=== PATIENT | male | born 1960 | race Caucasian/White ===

== ENCOUNTER 2023-04-26 04:43 | Observation (INO) | payer OTHER, SELFPAY ==
[2023-04-26] VITALS (10 sets, daily range): BP systolic 115–149; BP diastolic 68–95; BMI 25.6
[2023-04-26] MEDS: NSS 1000 IV ×3 (00:56→14:46)
[2023-04-26] MEDS: TORADOL 15 MG IV (00:57)
[2023-04-26] MEDS: ZOFRAN 4 MG IV (00:57)
[2023-04-26 01:29] LABS: % Basophils 1.1 % (0-2); % Immature Granulocytes 0.9 % (0-0.5); % Lymphocytes 28.7 % (20.5-51.1); % Monocytes 9.9 % (1.7-9.3); % Neutrophils 56.4 % (42.2-75.2); Absolute Basophils 0.1 10^3/uL (0-0.2); Absolute Eosinophils 0.3 10^3/uL (0-0.7); Absolute Immature Granulocytes 0.1 10^3/uL (0-0.05); Absolute Lymphocytes 2.6 10^3/uL (1.2-3.4); Absolute Monocytes 0.9 10^3/uL (0.1-0.6); Absolute Neutrophils 5.1 10^3/uL (1.4-6.5); Hematocrit 42.5 % (39.0-52.0); Hemoglobin 14.5 g/dL (13.0-18.0); Mean Corp Hgb Conc. 34.1 g/dL (33.0-37.0); Mean Corpuscular Hgb 29.4 pg (27.0-31.0); Mean Platelet Volume 10.4 fL (7.4-10.4); Nucleated Red Blood Cells % 0 % (-); Platelet Count 268 10^3/uL (130-400); Red Blood Cell Count 4.94 10^6/uL (4.70-6.10); Red Cell Dist. Width 12.9 % (11.5-14.5); White Blood Cell Count 9.1 10^3/uL (4.8-10.8)
[2023-04-26] MEDS: DILAUDID 0.5 MG IV ×7 (01:45→23:01)
[2023-04-26 01:46] LABS: ALT (SGPT) 24 U/L (0-50); AST (SGOT) 25 U/L (17-59); Albumin 4.1 g/dl (3.5-5.0); Alkaline Phosphatase 101 U/L (38-126); Blood Urea Nitrogen 23 mg/dl (9-20); Calcium 9.2 mg/dl (8.4-10.2); Carbon Dioxide 27 mmol/L (22-30); Chloride 104 mmol/L (98-107); Estimated Creatinine Clearance 54 ml/min; Glucose 143 mg/dl (70-99); Potassium 3.7 mmol/L (3.5-5.1); Sodium 141 mmol/L (135-145); Total Bilirubin 0.3 mg/dl (0.2-1.3); Total Protein 6.7 g/dl (6.3-8.2); eGFR > 60.00
[2023-04-26 01:58] LABS: Urine Albumin Negative (Neg - Trace); Urine Bilirubin Negative (Negative); Urine Character Slightly Cloudy (Clear); Urine Color Yellow; Urine Glucose Negative (Negative); Urine Ketone Trace (Negative); Urine Leukocyte Trace (Negative); Urine Nitrite Negative (Negative); Urine Occult Blood 4+ (Negative); Urine Specific Gravity 1.025 (<1.030); Urine Urobilinogen Negative (Neg - 1+)
[2023-04-26 02:11] LABS: Urine Bacteria Moderate (Negative); Urine Red Blood Cell >100 /HPF (0-2); Urine Squamous Cell 0-2 /LPF (Few); Urine Uric Acid Crystals Seen
--- NOTE | 2023-04-26 02:32 | ED.GENMED ---
History of Present Illness
General
Chief Complaint: Flank Pain
Source: patient
Exam Limitations: none
Time Seen by Provider: 04/26/23 00:48
Travel History
Have you had any contact with someone who has COVID-19?: No
Do you have any symptoms of coronavirus? Fever > 100 degrees, chills, cough, shortness of breath, sore throat, loss of taste or smell, muscle aches, or headache?: No
History of Present Illness
History of Present Illness:
Sudden onset left flank pain hours before ER arrival. Some nausea. No fever or chills. No history of similar pain. Pain is severe in nature
Past History
Past History
ED Past Medical History: None
ED Past Surgical History: Orthopedic
Social History
Tobacco: Non-smoker
Personal:
Living: with family
Family History
Family History: Unable to obtain
Review of Systems
Review of Systems
All Other Systems: Not applicable
Constitutional: Denies fever
: Denies dysuria or frequency
Phy Exam
Physical Exam
Physical Exam:
GENERAL: Alert and oriented very uncomfortable appearing but nontoxic
EYE: Orbits normal.
NECK: Supple
CARDIAC: Regular rate and rhythm without any obvious murmurs.
LUNGS: Clear breath sounds,normal
ABDOMEN: Soft, without focal tenderness or distention no CVA tenderness
NEUROLOGICAL: Alert and oriented , grossly non-focal
SKIN: Warm and dry, no rash or lesion, no discoloration, skin intact.
MUSCULOSKELETAL: No edema,no deformity.Good color
PSYCH: Normal and appropriate interaction.
Course
Orders/Labs/Results
Orders:
Orders
04/26/23 00:52
IV Insert/Care/Rem.- Treatment PRN
0.9% Sodium Chloride 1000 ml [Nss] 1,000 ml IV BOLUS
Ketorolac [Toradol] 15 mg IV NOW STA
Ondansetron Injectable [Zofran] 4 mg IV NOW STA
04/26/23 00:53
CT Abd/pel Without Iv Or Oral Urgent
Comment:
Reason For Exam: Sudden left flank pain
04/26/23 01:20
Complete Blood Count/With Diff Urgent
Comprehensive Metabolic Panel Urgent
04/26/23 01:43
HYDROmorphone [Dilaudid] 0.5 mg IV NOW STA
04/26/23 01:44
Urinalysis Reflex To Culture Urgent
Date Specimen was Collected: 04/26/23
Time Specimen was Collected: 00:55
Urine Microscopic Reflex Cult Urgent
Urine Culture Urgent
LADAN Source: U
Specimen Description:
Date Specimen was Collected: 04/26/23
Time Specimen was Collected: 00:55
04/26/23 02:32
CefTRIAXone [Rocephin] 1,000 mg IV NOW STA
04/26/23 03:12
HYDROmorphone [Dilaudid] 0.5 mg .ROUTE .STK-MED ONE
04/26/23 03:13
HYDROmorphone [Dilaudid] 0.5 mg IV NOW STA
04/26/23 03:53
Admit/Transfer Patient As Directed
Co-Sign Provider:
Level of Care: Observation services
Assign to:: Medical/Surgical
Physician / Group: Sinan Palmer
Diagnosis: mild left Hydronephrosis
04/26/23 04:01
Code Status As Directed
Resuscitation Status: Full Code
04/26/23 04:51
0.9% Sodium Chloride 1000 ml [Nss] 1,000 ml IV 100 mls/hr
Acetaminophen [Tylenol] 650 mg PO Q4HPRN PRN
HYDROmorphone [Dilaudid] 0.5 mg IV Q4HPRN PRN
Ketorolac [Toradol] 10 mg IV Q6HPRN PRN
Ondansetron Injectable [Zofran] 4 mg IV Q6HPRN PRN
04/26/23 04:51
Activity As Directed
Activity Level: Out of Bed-Early Mobility
Activity As Directed
Activity Level: Out of Bed-Early Mobility
Anti-embolism (ANN) Hose As Directed
Type: Thigh high
Bladder Scan As Directed
Follow Bladder Retention/Intermittent Cath Algorithm?: Yes
Frequency: Per Retention Algorithm
Intake/ Output As Directed
Frequency: Per unit guidelines
Pneumatic Compression Sleeves As Directed
Type: Thigh high
Vital Signs As Directed
Frequency: Per unit guidelines
Vital Signs As Directed
Frequency: Per unit guidelines
DX Deep Vein Thrombosis Video Routine
04/26/23 06:06
Basic Metabolic Panel IN AM
Complete Blood Count/No Diff IN AM
04/27/23 00:00
CefTRIAXone [Rocephin] 1,000 mg IV Q24H
Abnormal Lab Results
04/26/23 04/26/23
01:20 01:44
Abs Immat Gran (auto) 0.1 H 10^3/uL
(0-0.05)
Absolute Monos (auto) 0.9 H 10^3/uL
(0.1-0.6)
Immature Gran % 0.9 H %
(0-0.5)
Monocytes % 9.9 H %
(1.7-9.3)
BUN 23 H mg/dl
(9-20)
Glucose 143 H mg/dl
(70-99)
Urine Ketones Trace A
(Negative)
Ur Occult Blood Reflex 4+ A
(Negative)
Leukocyte Esterase Rfl Trace A
(Negative)
Urine RBC >100 A /HPF
(0-2)
Urine Bacteria (Reflex) Moderate A
(Negative)
04/26/23 01:20
04/26/23 01:20
Vital Signs
Initial and Last Documented VS:
Initial Vital Signs
Pulse Resp BP Pulse Ox
74 28 140/95 98
04/26/23 00:40 04/26/23 00:40 04/26/23 00:40 04/26/23 00:40
Last Documented Vital Signs
Temp Pulse Resp BP Pulse Ox
98.1 F 80 18 135/69 94
04/27/23 07:00 04/27/23 07:00 04/27/23 07:00 04/27/23 07:00 04/27/23 07:00
MDM/Problems Addressed
Differential Diagnosis Includes:
Sudden left flank pain differential would include kidney stone rupture diverticulitis musculoskeletal. Workup in progress
*Radiology
Radiology exam reviewed: radiology read reviewed (1 to 2 mm obstructing stone UVJ)
*Pulse Oximetry
Patient hypoxic: no
*Critical Care Note
Total Time (30-74mins, 75-104mins- exclusive of procedures): Not Applicable
Update Note
Update Note:
Patient remains quite uncomfortable. Will be admitted for pain management. Urinalysis with moderate bacteria. No fever no white count. Doubt infectious issue but will cover with antibiotics pending further care
ED Attending Note
-
Portions of this chart may have been created with voice recognition software.� Occasional wrong word or��sound alike� substitutions may have occurred due to the inherent limitations of voice recognition software.
Discharge Plan
Departure
Patient Disposition: Admit
Date of Disposition: 04/26/23
Time of Disposition: 02:34
Presentation/result/management discussed w/ accepting MD/DO: Urology
Discharge Problem:
Obstructing kidney stone
Interventions
Interventions:
*Risk Screen - Suicide Last Done: 04/26/23 00:40
*General Assessment Last Done: 04/26/23 01:08
*Neglect/Abuse Screening Last Done: 04/26/23 00:40
ED- Fall Risk Assessment Last Done: 04/26/23 01:08
*ED COVID-19 Vaccine History Last Done: 04/26/23 01:08
*Nursing Disposition Last Done: 04/26/23 17:47
DM-Khnozh-Rufoardrkz Assessment Last Done: 04/26/23 01:08
ED-Male Genitourinary Assessment Last Done: 04/26/23 01:48
Discharge Date and Time
Discharge Date/Time: 04/26/23 17:47
[2023-04-26] MEDS: ROCEPHIN 1000 MG IV (02:51)
--- NOTE | 2023-04-26 04:21 | HPS.HSE ---
Family Physician
-
Family Physician: FLACO Law
Chief Complaint
-
'left flank pain'
History of Present Illness
62 y/o patient with PMH of Chron's ' disease, presents today to ER with the c/o left flank pain radiating towards his left groin. Pain started around 11pm at night and progressively gotten worse. States he had one episode of vomiting. States he is
moving his BMs and urinating without any difficulty. No blood noted in urine. States he saw Dr. Llanos one month ago for urinary frequency and was placed on a medication that patient can't recall the name off. Patient denies any chest pain,
Shortness of breath at present, but seems uncomfortable in bed due to pain. No abdomen surgical history. Left THR done last year.
Medical History
Past Medical History
Past Medical History: Reports Other
Additional Past Medical History:
Colitis
Chron's disease
Past Surgical History: Reports Orthopedic
Social History
Tobacco: Non-smoker
Alcohol: Occasional
Family History
Family History: Not pertinent
Allergies / Home Medications
Allergies reflects when Allergies were last updated in [facility].
Home Medications with original date entered in [facility]
Allergy/Medication List:
Allergies
Allergy/AdvReac Type Severity Reaction Status Date / Time
No Known Allergies Allergy Verified 04/26/23 00:42
Home Medications
levofloxacin 500 mg tablet 500 mg PO DAILY 9 days #9 tabs 12/05/22
metronidazole 500 mg tablet 500 mg PO TID #27 tabs 12/05/22
pantoprazole 40 mg tablet,delayed release (Protonix) 40 mg PO DAILY #30 tabs 12/05/22
Review of Systems
-
History Source: Patient
A 12 point ROS was completed and negative except as noted: Yes
Constitutional: Reports No Symptoms
EENT: Reports No Symptoms
Respiratory: Reports No Symptoms
Cardiac: Reports No Symptoms
Abdomen/GI: Reports No Symptoms
: Reports Flank Pain
Musculoskeletal: Reports No Symptoms
Skin: Reports No Symptoms
Neurological: Reports No Symptoms
Endocrine: Reports No Symptoms
Hematologic/Lymphatic: Reports No Symptoms
Psych: Reports No Symptoms
Physical Exam
Vital Signs
Vital Signs
Pulse Resp BP Pulse Ox
74 28 149/90 98
04/26/23 00:40 04/26/23 00:40 04/26/23 01:00 04/26/23 01:45
Physical Exam
General: Well Developed, Well Nourished and No Apparent Distress
HEENT: NormoCephalic, Moist mucous membranes and Atraumatic
Respiratory: Clear and Non Labored Respirations
Cardiac: S1/S2 and Regular Rhythm
Breast: Deferred by me
GI: Soft, Non Distended, Normal Bowel Sounds and Tender (Tender to palpate genearlized )
Rectal: Deferred by Provider
Genito-urinary: Deferred by me
Musculoskeletal: No Clubbing, No Cyanosis and No Edema
Skin: Warm and Dry
Neuro: Awake, Oriented, AO x 3 and Nonfocal/grossly intact
Hematologic/Lymphatic: No Lymphadenopathy
Psych: Calm and Intact Judgment/Insight
Laboratory Results
-
04/26/23 01:20
04/26/23 01:20
Laboratory Results
Total Bilirubin 0.3 mg/dl (0.2-1.3) 04/26/23 01:20
AST 25 U/L (17-59) 04/26/23 01:20
ALT 24 U/L (0-50) 04/26/23 01:20
Alkaline Phosphatase 101 U/L (38-126) 04/26/23 01:20
Data Reviewed
-
Diagnostic Radiology: Report Reviewed by me
Lab Data: Labs Reviewed by me
Impression/Plan
-
62 y/o patient presents with Left flank pain radiating to left groin
# Abdomen pain likely due Urinary tract obstruction due to Hydronephrosis
-CT abd/pelvis: punctate 1-2 mm left lateral vesicle junction calculus with associated mild left hydronephrosis
-Afebrile, WBC 9.0
-continue IV analgesics
-continue IV antiemetics
-Ceftriaxone
-continue NS
-Med-surg
-NPO post MN
-will admit under Dr. Palmer
# Crohn's disease
# Urinary frequency/Retention
-
Full Code
DVT prophylaxis SCD's.
[2023-04-26 06:59] LABS: Blood Urea Nitrogen 22 mg/dl (9-20); Calcium 8.3 mg/dl (8.4-10.2); Carbon Dioxide 23 mmol/L (22-30); Chloride 109 mmol/L (98-107); Estimated Creatinine Clearance 50 ml/min; Glucose 100 mg/dl (70-99); Potassium 4.5 mmol/L (3.5-5.1); Sodium 137 mmol/L (135-145); eGFR 57.18
[2023-04-26 07:02] LABS: Hematocrit 37.7 % (39.0-52.0); Hemoglobin 13.2 g/dL (13.0-18.0); Mean Corpuscular Hgb 29.5 pg (27.0-31.0); Mean Corpuscular Volume 84.3 fL (80.0-94.0); Mean Platelet Volume 10.7 fL (7.4-10.4); Platelet Count 222 10^3/uL (130-400); Red Blood Cell Count 4.47 10^6/uL (4.70-6.10); White Blood Cell Count 9.5 10^3/uL (4.8-10.8)
--- NOTE | 2023-04-26 08:44 | W.PN.UPDATE ---
Update Note
Progress Note Update
Dx: 2 mm distal left ureteral stone
Patient was offered and outpatient trial of stone passage with oral medications
OR
left ureteroscopy, stone removal and possible stenting this AM
he states that he cannot tolerate NSAIDs due to Crohn's disease and would prefer 'IV Dilaudid and to wait and see'
--- NOTE | 2023-04-26 10:11 | PTCARENOTE ---
pt aaox3. states 7/10 pain in left flank. room air breath sounds clear. has not voided yet. pt concerned about getting surgery for kidney stone. met with urology and decided to try and pass it himself. pt concerned about going home before
passing stone due to pain management and pmh of colitis and it fairing up with ceratin types of medications. ivf running as ordered. pain med given as ordered. at bedside reviewed pt condition and plan of care.
--- NOTE | 2023-04-26 10:48 | CM ---
Met with patient and spouse in ED room. Patient and live in one level home with 1 step to enter. Patient is independent in home and community. He still works. He does not own any DME. No history of VNA or SNF.
Patient has kidney stone in pain. Reviewed observation letter and signed for patient.
Copy on chart.
PCP Marly Collado at [facility].
RX [facility] [address] [place].
--- NOTE | 2023-04-26 12:55 | W.PN.UPDATE ---
Update Note
Progress Note Update
patient reports persistent, severe pain only managed by IV Dilaudid
will keep as inpatient overnight
[2023-04-26] MEDS: TORADOL 10 MG IV (13:10)
[2023-04-26] MEDS: FLOMAX 0.400000000000000022 MG PO (17:04)
--- NOTE | 2023-04-26 17:45 | PTCARENOTE ---
pt transferred to floor with all belongings.
[2023-04-27] MEDS: NSS 1000 IV ×2 (00:34→10:55)
[2023-04-27] MEDS: TORADOL 10 MG IV ×2 (00:56→08:13)
[2023-04-27] MEDS: DILAUDID 0.5 MG IV ×3 (03:10→07:41)
--- NOTE | 2023-04-27 06:21 | W.PN.URO.CBU ---
Today's Communication / Plan
-
continued IV narcotics\\
trial of stone passage
posted for OR tomorrow if stone fails to pass and pain remains intractable
surgery described in detail
Assessment / Plan
-
persistent left ureteral stone
Diagnosis
-
Date of Service: April 27, 2023
-
Patient Diagnosis: left ureteral stone
Subjective
-
severe pain only relieved by IV Dilaudid
Objective
-
Vital Signs
Temp Pulse Resp BP Pulse Ox
98.1 F 76 14 122/68 94
04/26/23 23:00 04/26/23 23:00 04/26/23 23:00 04/26/23 23:00 04/26/23 23:00
Laboratory Results
04/26/23 06:06
04/26/23 06:06
Physical Exam
-
General - mild distress
Skin - warm & dry with no rash
Neuro - AOx3, no motor deficits
Extremities - no clubbing, no cyanosis, no edema
[2023-04-27 07:00] VITALS: BP 135/69
[2023-04-27] MEDS: DILAUDID 1 MG IV (10:54)
[2023-04-27] MEDS: COLACE 100 MG PO (10:56)
--- NOTE | 2023-04-27 15:29 | CM ---
Addendum entered by Liliana Rubio RN 04/27/23 16:58:
DC order placed .
PLAN Home no needs
Original Note:
Spoke with patient he is aware of observation letter.
Offered VN he declined need.
His will drive him home.
PLAN Home no needs
--- NOTE | 2023-04-27 16:02 | W.PN.UPDATE ---
Update Note
Progress Note Update
per RN patient 'passed stones and is now pain-free'
yet patient insists on repeat imaging to verify passage of stone
[2023-04-27] MEDS: COLACE PO (17:26)
== END 2023-04-27 18:08 | disposition home or self-care (01) ==
LOC: 3 WEST ACU 04:43
PROVIDERS: Nurse Practitioner Gerontology; ADMITTING PHYSICIAN Specialist; EMERGENCY PHYSICIAN Emergency Medicine; FAMILY PHYSICIAN Nurse Practitioner Adult Health
DX: N13.2 Hydronephrosis with renal and ureteral calculous obstruction (principal); K50.90 Crohn's disease, unspecified, without complications; Z79.899 Other long term (current) drug therapy
CPT/HCPCS: 72192; 74176; 80048; 80053; 81003; 81015; 85025; 85027; 87086; 96374; 96375; 96376; 99285; G0378

== ENCOUNTER → 2023-05-04 15:51 | Outpatient (REF) | payer OTHER, SELFPAY | LOC: RAD 15:51 | PROVIDERS: ATTENDING PHYSICIAN Family Medicine | DX: Z87.891 Personal history of nicotine dependence (principal) | CPT/HCPCS: 71271 ==

== ENCOUNTER → 2024-05-13 07:37 | Outpatient (REF) | payer OTHER, SELFPAY | LOC: HWRAD 07:37 | PROVIDERS: ATTENDING PHYSICIAN Family Medicine | DX: Z87.891 Personal history of nicotine dependence (principal); E78.5 Hyperlipidemia, unspecified | CPT/HCPCS: 71271; 75571 ==

== ENCOUNTER 2024-07-31 06:21 | Day surgery (SDC) | payer OTHER, SELFPAY | END 2024-07-31 11:02 | disposition home or self-care (01) | LOC: GI 06:21 | PROVIDERS: ATTENDING PHYSICIAN Surgery | DX: Z12.11 Encounter for screening for malignant neoplasm of colon (principal); K57.30 Diverticulosis of large intestine without perforation or abscess without bleeding; K64.9 Unspecified hemorrhoids; K52.3 Indeterminate colitis; K62.1 Rectal polyp | CPT/HCPCS: 45385; 88305 ==

== ENCOUNTER → 2025-02-19 12:00 | Outpatient (REF) | payer OTHER, SELFPAY | LOC: DHSLP 12:00 | PROVIDERS: ATTENDING PHYSICIAN Internal Medicine; FAMILY PHYSICIAN Nurse Practitioner Adult Health | DX: G47.33 Obstructive sleep apnea (adult) (pediatric) (principal) | CPT/HCPCS: 95800 ==